=== PATIENT | female | born 1965 | race Caucasian/White ===

== ENCOUNTER 2022-05-22 06:16 | Day surgery (SDC) | payer BC ==
[2022-05-18 15:47] LABS: BASOPHILS % (AUTO) 0.5 % (0.0-5.0); EOSINOPHILS % (AUTO) 6.5 % (0.0-8.0); HEMATOCRIT 38.9 % (36-48); LYMPHOCYTES % (AUTO) 33.5 % (21.0-51.0); MEAN CORPUSCULAR HEMOGLOBIN 28.3 pg (27.0-33.0); MEAN CORPUSCULAR HGB CONC 33.7 g/dL (32.0-36.0); MONOCYTES % (AUTO) 10.4 % (3.0-13.0); NEUTROPHILS % (AUTO) 48.9 % (40.0-77.0); PLATELET COUNT (AUTO) 198 K/uL (130-400); RED BLOOD CELL COUNT(AUTO) 4.63 MIL/uL (4.00-5.50); RED CELL DISTRIBUTION WIDTH 13.3 % (11.0-15.5); WHITE BLOOD COUNT (AUTO) 6.5 K/uL (4.8-10.8)
[2022-05-19 08:59] VITALS: BP 129/70
[~2022-05-22] VITALS: Ht 157.5 cm; Wt 68.5 kg
[2022-05-22] VITALS (17 sets, daily range): BP systolic 104–124; BP diastolic 56–76
[2022-05-22] MEDS: CEFAZOLIN SODIUM 1 GM VIAL IVP SCH ×2 (06:00→09:00)
[~2022-05-22 06:16] MED LIST: AEC81 PO; CALDOLOR 800MG+NS 250ML 250 ML IV SCH; HYDR12.54 PO; LACTATED RINGERS 1000ML 1,000 ML IV SCH; LOSA50TA64 PO; RIZA10TA41 PO; ROSU10TA28 PO; VITAMIN D PO
[2022-05-22 07:21] LABS: CREATININE 0.7 mg/dL (0.5-1.5); POTASSIUM 3.4 mmol/L (3.5-5.1)
[2022-05-22] MEDS ORDERED: PROPOFOL 10 MG/ML 20ML VIAL IV ONE (08:47)
[2022-05-22] MEDS ORDERED: MIDAZOLAM HCL 1 MG/ML 2ML VIAL ONE (08:47)
[2022-05-22] MEDS ORDERED: ONDANSETRON 4MG INJ ONE (08:48)
[2022-05-22] MEDS ORDERED: FENTANYL CITRATE PF 50 MCG/1 ML 2ML VIAL ONE (08:48)
[2022-05-22] MEDS ORDERED: ROCURONIUM 10MG/1ML SYR 10 MG/ML ML ONE (08:48)
[2022-05-22] MEDS ORDERED: LIDOCAINE HCL-MPF 2% 10ML AMP IJ ONE (09:15)
[2022-05-22] MEDS ORDERED: NEOSTIGMINE 5MG/5ML SYR IV ONE (09:50)
[2022-05-22] MEDS ORDERED: GLYCOPYRROLATE 1 MG/5 ML SYRINGE ONE (09:50)
[2022-05-22] MEDS ORDERED: MEPERIDINE-PF 25 MG/ML SYG ONE (10:23)
== END 2022-05-22 12:05 | disposition home or self-care (01) ==
LOC: DAH 06:16
PROVIDERS: ATTEND Obstetrics & Gynecology
DX: N81.11 Cystocele, midline (principal); Z79.899 Other long term (current) drug therapy; Z79.01 Long term (current) use of anticoagulants; Z90.710 Acquired absence of both cervix and uterus; Z79.82 Long term (current) use of aspirin; Z98.890 Other specified postprocedural states
CPT/HCPCS: 85025; 86850 ×2; 86900 ×2; 86901 ×2; 87426; 36415 ×2; 57285; 80048; J7030; A4215; A4351; J7120; J3010; J0690; J3490 ×2; J2710; J2250; J2704; J2405; J2175; J1741

== ENCOUNTER → 2023-10-17 | Outpatient (CLI) | payer BC ==
[~2023-10-17] MED LIST changes: -CALDOLOR 800MG+NS 250ML 250 ML IV SCH; -LACTATED RINGERS 1000ML 1,000 ML IV SCH
== END | disposition home or self-care (01) ==
LOC: RAH 08:50
PROVIDERS: ATTEND Family Medicine
DX: K57.90 Diverticulosis of intestine, part unspecified, without perforation or abscess without bleeding (principal); R31.0 Gross hematuria; M47.815 Spondylosis without myelopathy or radiculopathy, thoracolumbar region; I70.90 Unspecified atherosclerosis; Z90.49 Acquired absence of other specified parts of digestive tract
CPT/HCPCS: 74176

== ENCOUNTER → 2024-02-07 | Outpatient (CLI) | payer BC ==
[~2024-02-07] MED LIST changes: +IOHEXOL 350 MG/ML 100ML INFUS..BTL IV ONE; -ROSU10TA28 PO; +ROSU10TA72 PO
== END | disposition home or self-care (01) ==
LOC: RAH 09:33
PROVIDERS: ATTEND Urology
DX: N28.1 Cyst of kidney, acquired (principal); I70.90 Unspecified atherosclerosis; K63.89 Other specified diseases of intestine; M47.815 Spondylosis without myelopathy or radiculopathy, thoracolumbar region; R31.29 Other microscopic hematuria; Z90.49 Acquired absence of other specified parts of digestive tract
CPT/HCPCS: 74178; Q9967

== ENCOUNTER → 2024-03-18 | Outpatient (CLI) | payer BC ==
[~2024-03-18] MED LIST changes: -IOHEXOL 350 MG/ML 100ML INFUS..BTL IV ONE
== END | disposition home or self-care (01) ==
LOC: RAH 10:11
PROVIDERS: ATTEND Family Medicine
DX: N83.201 Unspecified ovarian cyst, right side (principal); N83.202 Unspecified ovarian cyst, left side; Z90.710 Acquired absence of both cervix and uterus
CPT/HCPCS: 76856

== ENCOUNTER → 2025-05-12 | Outpatient (CLI) | payer BC ==
[~2025-05-12] MED LIST changes: +IOHEXOL 350 MG/ML 100ML INFUS..BTL IV ONE
--- NOTE | 2025-05-13 14:35 | HMCIMG ---
EXAM: CTA Chest with Intravenous Contrast for PE evaluation CLINICAL HISTORY: SHORTNESS OF BREATH TECHNIQUE: Axial CTA images of the chest with intravenous contrast using a pulmonary embolism protocol. Multiplanar reconstructed images were created and reviewed. CONTRAST: None. was administered without incident. COMPARISON: None provided. FINDINGS: PULMONARY ARTERIES: No evidence of central or segmental pulmonary embolism is seen. AORTA: There is no evidence for aneurysm or dissection of the thoracic aorta. LUNGS: Paraseptal emphysema in the superior segment of the right lower lobe. PLEURAL SPACES: No pleural effusion seen. No pneumothorax evident. HEART: Normal heart size. No significant pericardial effusion. LYMPH NODES: Heterogeneously enhancing lymph node in the right axilla measuring 1.6 x 1.4 cm. BONES: Degenerative changes in the visualized spine. No focal osseous abnormality or acute fracture. UPPER ABDOMEN: Left-sided mild hydrouretronephrosis. IMPRESSION: 1. No evidence of pulmonary embolism. 2. No thoracic aortic aneurysm or dissection. 3. No pulmonary infiltrates or pleural effusions. 4. Heterogeneously enhancing right axillary lymph node measuring 1.6 x 1.4 cm - nonspecific /[place]
== END | disposition home or self-care (01) ==
LOC: RAH 09:56
PROVIDERS: ATTEND Internal Medicine Cardiovascular Disease
DX: R59.0 Localized enlarged lymph nodes (principal); J43.8 Other emphysema; M47.814 Spondylosis without myelopathy or radiculopathy, thoracic region; N13.30 Unspecified hydronephrosis; R06.02 Shortness of breath
CPT/HCPCS: 71275; Q9967